=== PATIENT | male | born 1955 | race Caucasian/White ===

== ENCOUNTER 2016-12-19 19:06 | Emergency (ER) | payer OTHER ==
[~2016-12-19 19:06] MED LIST: ALDACTONE25 MG PO; CARVEDILOL25 MG PO; CARVEDILOL3.125 MG PO; COUMADIN1 MG PO; DIGITEK0.125 MG PO; DIGITEK0.25 MG PO; HYDROMORPHONE HC2 MG PO; LEVOFLOXACIN500 MG PO; METRONIDAZOLE500 MG PO; PLAVIX75 MG PO; WARFARIN SODIU2.5 MG PO; ZESTRIL2.5 MG PO
--- NOTE | 2016-12-19 21:17 | ED NURSING NOTES ---
Clinical Report - Nurses [facility] [address] [place] [address] 12/19/2016 19:05 Patient: WANG MONACO TRIAGE Triage time 19:10 Dec 19 2016. Acuity: LEVEL 3. Chief Complaint: (Critical Lab values.). Alert. GULSHAN COMA SCORE: Gulshan Coma Scale: 15- eyes open spontaneously (4); best verbal response- oriented x 4 (5); best motor response- obeys commands (6). --19:37 Bridger Moreno R.N. 19:30 12/19/16. BP: 101/76. HR: 64. RR: 18. O2 saturation: 91% on room air. Temp: 97.8 F. Pain level now: 0/10. --19:37 Bridger Moreno R.N. Weight: 63.9 kg stated. Height/Length: 72 inches Per Patient. BMI: 19.1. --19:16 Bridger Moreno R.N. Medications Digoxin Oral 0.125 mg, daily. Lisinopril Oral 5 mg, daily. Spironolactone Oral 25 mg, daily. Warfarin Sodium Oral 3 mg, daily. --19:19 Bridger Moreno R.N. Metoprolol Succinate ER Oral. --19:22 Bridger Moreno R.N. Aspirin Oral (Tablet Chewable 81 mg) 1 tablet, daily. --19:22 Bridger Moreno R.N. Atorvastatin Calcium Oral 10 mg, at bedtime. --19:22 Bridger Moreno R.N. Allergies No Known Drug Allergy. --19:19 Bridger Moreno R.N. History Arrived by private vehicle. Historian: patient. Accompanied by family. Primary physician (Mariusz). ( Critical Lab Values. Pt states that he had his blood drawn this morning and his PCP's office called and told him that he had some critical values.). This started today. Treatment HEALTH CARE SPECIALIST: None. PAST MEDICAL HX: Immunizations: status is unknown. SOCIAL HX: Heavy tobacco smoker- less than 1 pack per day. History of drug use: marijuana. No alcohol use. No infectious disease exposure. ABUSE ASSESSMENT: No report of abuse. FALL RISK ASSESSMENT: Fall risk assessment completed. No fall risk identified. NUTRITIONAL RISK ASSESSMENT: The nutritional risk assessment revealed no deficiencies. FUNCTIONAL ASSESSMENT: Functional assessment: no impairments noted. LEARNING NEEDS ASSESSMENT: The learning needs assessment revealed no barriers. SKIN INTEGRITY ASSESSMENT: Skin integrity risk assessment completed. No skin integrity risk identified. --19:37 Bridger Moreno R.N. PROBLEMS: COPD - Chronic Obstructive Pulmonary Disease. Myocardial Infarction. Hypertension. --19:27 Bridger Moreno R.N. Pericardial effusion. Diverticulitis. --19:33 Bridger Moreno R.N. ADDITIONAL SURGERIES: Angioplasty. Defibrillator . Pacemaker. --19:27 Bridger Moreno R.N. Interventions ID band on patient. To treatment room. --19:37 Bridger Moreno R.N. PHYSICAL ASSESSMENT Ambulatory to room. GENERAL / NEURO / PSYCH: Alert. Oriented X 4. HEENT: No facial asymmetry noted. Mucous membranes are pink. RESPIRATORY: Respirations not labored. GI / : Abdomen soft and nontender. SKIN: Skin intact. Skin is warm and dry. Normal skin turgor. --19:38 Bridger Moreno R.N. NURSING PROGRESS NOTES 19:15 12/19/2016 Site #1 started via IV in the left wrist with an 20g angiocath, with aseptic technique and good blood return; one attempt. Blood drawn: rainbow set. Labeled in the presence of the patient and sent to the lab. Saline lock flushed with 10 mL saline (start by LUCIO Javier). --19:30 Bridger Moreno R.N. EKG time: (1946). EKG was performed by a tech and shown to the ED physician. ( performed per MD SHARIF). --19:47 Miki Garcia ER Tech1 20:35 12/19/2016 Started bag #1 1000 mL IV Fluids IV NS (Saline); at 1000 mL/hr over 60 minute(s) via site #1. Allergies verified and confirmed 5 rights. IV patency established. IV site checked: no pain, redness, or swelling. IV flushed thoroughly pre- and post-medication administration. --20:43 Bridger Moreno R.N. 19:30 12/19/16. BP: 113/76. HR: 101 (irregularly-irregular). RR: 18. O2 saturation: 91%. Pain level now: 0/10. Additional comments: Paced. --20:49 Bridger Moreno R.N. 21:19 12/19/2016 IV Fluids IV NS Discontinued: bag #1 completed upon discharge. Total amount infused: 1000 mL. IV patency established. IV site checked: no pain, redness, or swelling. IV flushed thoroughly. --21:34 Morales Maloney R.N. DISPOSITION / DISCHARGE 21:21 12/19/2016 Site #1 removed upon discharge. Catheter intact. Bandaid applied. --21:31 Morales Maloney R.N. Departure time: 2129. Condition at departure: improved. ( Pt was given told to get a blood drawn for recheck of K, per MD. Pt was told to stop taking potassium and to talk to his PCP.). No learning barriers present. Discharge instructions provided and reviewed with the patient. Patient verbalized understanding. Written instructions provided in Samoan. The patient was discharged by the physician. He was discharged home and accompanied by family. He left the Emergency Department ambulatory and via private vehicle. Family member driving. --21:32 Morales Maloney R.N. 21:30 12/19/16. BP: 118/80. HR: 98. RR: 22. O2 saturation: 96%. Temp: 98.3 F. Pain level now 0/10. --21:32 Morales Maloney R.N. Locked/Released at 12/19/2016 21:34 by Morales Maloney R.N.
--- NOTE | 2016-12-19 21:17 | ED ORDER SUMMARY ---
..... Patient: WANG MONACO OrderSheet [facility] VisitID: [id number] [address] [place] [address] 61y, M Registration Date/Time: 12/19/2016 ORDER SHEET Weight: 63.9 kg (stated) Allergies: No Known Drug Allergy GENERAL ORDERS: CBC w Diff Urgent (19:46 12/19/2016 Carltno Hutson) (Ack 19:47 AMcQuoid ER Tech1) (20:41 Roselyn Mahan.NChristin) CMP Urgent (19:46 12/19/2016 Carlton Hutson) (Ack 19:47 AMcQuoid ER Tech1) (20:41 Roselyn Bhatia) EKG - ER Stat (19:48 12/19/2016 Carlton Hutson) (19:51 AMcQuoid ER Tech1) MEDICATION ORDERS: IV FLUIDS: IV Saline Lock (19:29 12/19/2016 Roselyn Bhatia verbal order read back to Carlton Hutson) (19:30 Roselyn Bhatia) IV NS : initial bolus none -, then 1000 mL/hr for X1 (NOW) (20:18 12/19/2016 Carlton Hutson) (20:43 Roselyn Bhatia) ORDER SHEET NOTES: [Electronically signed by Bridger Mayo Dr. (21:24 12/19/2016)] [Electronically signed by Morales Maloney R.N. (21:34 12/19/2016)] [Electronically locked/signed by Morales Maloney R.N. (21:34 12/19/2016)]
--- NOTE | 2016-12-19 21:17 | ED CLINICAL REPORT ---
Clinical Report - Physicians/Mid Levels [facility] [address] [place] [address] 12/19/2016 19:05 Patient: WANG MONACO Time Seen: 19:11; initial patient contact. Arrived- By private vehicle. Historian- patient. HISTORY OF PRESENT ILLNESS Chief Complaint: ABNORMAL POTASSIUM (5.9). This started just prior to arrival and is still present. At its maximum, severity described as mild. When seen in the E.D., severity described as mild. Modifying factors. Not worsened by anything. Not relieved by anything. No current or associated symptoms. Similar symptoms previously: None. Recent medical care: The patient was seen recently in the office. ( Potassium has been low, was started on 3 tabs, but pt has only been taking 2, labs today showed a K of 5.9 and Cr of 1.7(baseline)). REVIEW OF SYSTEMS No difficulty breathing, chest pain, nausea, vomiting or palpitations. All systems otherwise negative, except as recorded above. PAST HISTORY COPD - Chronic Obstructive Pulmonary Disease. Myocardial Infarction. Hypertension. Pericardial effusion. Diverticulitis. CKD SURGERIES: Angioplasty. Defibrillator . Pacemaker. SOCIAL HISTORY Current every day smoker. History of drug use: marijuana. No alcohol use. ADDITIONAL NOTES The nursing notes have been reviewed with agreement regarding the chief complaint, PMH and patient medications and allergies. PHYSICAL EXAM Vital Signs: 12/19/2016 19:30 BP: 101/76. HR: 64. RR: 18. O2 saturation: 91%. Temp: 97.8 F. Pain level now: 0/10. Have been reviewed. Blood pressure normal. Heart rate normal. Respiratory rate normal. Temperature normal. Oxygen saturation low. Appearance: Alert. No acute distress. Eyes: Eyes normal inspection. ENT: Pharynx normal. The mucous membranes are not dry. CVS: Normal heart rate and rhythm. Heart sounds normal. Respiratory: No respiratory distress. Breath sounds normal. Skin: Skin warm and dry. Normal skin color. Extremities: No lower extremity edema. Neuro: Oriented X 3. LABS, X-RAYS, AND EKG EKG: EKG time: (1946). No acute process. No acute ischemia. Normal EKG. Rate: 97. Ventricular paced rhythm. Normal QRS complex. Normal axis. Normal ST and T waves, QT and QTc. Prior EKG unavailable. The study has been interpreted contemporaneously by me. The study has been independently viewed by me. The EKG appears to be a good tracing. Interpretation time: 1946. Laboratory Tests: CBC w Diff: (YONY: 12/19/2016 19:15) ( MsgRcvd 12/19/2016 19:53) Final results Test Result Flag Units (Reference) WHITE BLOOD COUNT 11.1 K/uL (4.5-11.5) RED BLOOD COUNT 4.07 L M/uL (4.50-5.90) HEMOGLOBIN 11.4 L gm/dL (13.5-17.5) HEMATOCRIT 35.2 L % (41.0-53.0) MEAN CELL VOLUME 87 fL (80-100) MEAN CORPUSCULAR HGB 28 pg (26-34) MEAN CORPUSCULAR HGB CONC 32 g/dL (31-37) RED CELL DISTRIBUTION WIDTH 14.5 % (11.6-14.8) PLATELET COUNT 361 K/uL (150-400) NEUTROPHIL % 75.0 % (50-75) LYMPH % 17.4 L % (25-40) MONO % 6.1 % (3-14) EOSINOPHIL % 0.4 % (0-4) BASOPHIL % 1.1 % (0-2) . PROGRESS AND PROCEDURES Disposition: Discharged home in good and improved condition. Condition: good. CLINICAL IMPRESSION Hyperkalemia Mild chronic renal failure. INSTRUCTIONS Your Current Medications: CONTINUE TAKING THE FOLLOWING MEDICATIONS: Aspirin Oral : Tablet Chewable 81 mg, 1 tablet daily. Atorvastatin Calcium Oral : 10 mg at bedtime. Digoxin Oral : 0.125 mg daily. Lisinopril Oral : 5 mg daily. Metoprolol Succinate ER Oral. Spironolactone Oral : 25 mg daily. Warfarin Sodium Oral : 3 mg daily. Follow-up: Blood pressure screening was not performed during this visit because the patient has an active diagnosis of hypertension. (Electronically signed by Bridger Mayo Dr. 12/19/2016 21:24)
--- NOTE | 2016-12-19 21:17 | ED ORDER SUMMARY ---
..... Patient: WANG MONACO OrderSheet [facility] VisitID: [id number] [address] [place] [address] 61y, M Registration Date/Time: 12/19/2016 ORDER SHEET Weight: 63.9 kg (stated) Allergies: No Known Drug Allergy GENERAL ORDERS: CBC w Diff Urgent (19:46 12/19/2016 Carlton Hutson) (Ack 19:47 AMcQuoid ER Tech1) (20:41 Roselyn Mahan.NChristin) CMP Urgent (19:46 12/19/2016 Carlton Hutson) (Ack 19:47 AMcQuoid ER Tech1) (20:41 Roselyn Bhatia) EKG - ER Stat (19:48 12/19/2016 Carlton Hutson) (19:51 AMcQuoid ER Tech1) MEDICATION ORDERS: IV FLUIDS: IV Saline Lock (19:29 12/19/2016 Roselyn Bhatia verbal order read back to Carlton Hutson) (19:30 Roselyn Bhatia) IV NS : initial bolus none -, then 1000 mL/hr for X1 (NOW) (20:18 12/19/2016 Carlton Hutson) (20:43 Roselyn Bhatia) ORDER SHEET NOTES: [Electronically signed by Bridger Mayo Dr. (21:24 12/19/2016)] [Electronically signed by Morales Maloney R.N. (21:34 12/19/2016)] [Electronically locked/signed by Morales Maloney R.N. (21:34 12/19/2016)]
--- NOTE | 2016-12-19 21:34 | ED MED RECONCILIATION SUMMARY ---
Patient: WANG MONACO Medication Reconciliation Report [facility] VisitID: [id number] [address] [place] [address] 61y, M Registration Date/Time: 12/19/2016 Weight: 63.9 kg Height/Length: 72 in. BMI: 19.1 ALLERGIES: No Known Drug Allergy The patient's Home Medications are listed below: CONTINUE TAKING THE FOLLOWING MEDICATIONS: Aspirin Oral (81 mg) 1 tablet, daily Atorvastatin Calcium Oral 10 mg, at bedtime Digoxin Oral 0.125 mg, daily Lisinopril Oral 5 mg, daily Metoprolol Succinate ER Oral Spironolactone Oral 25 mg, daily Warfarin Sodium Oral 3 mg, daily The source(s) of the original Home Medication information: Not obtained. The following Medications were given to the patient in the Emergency Department: IV NS IV Fluids bolus 0, then 1000 mL/hr, administered: 12/19/2016 8:35:00 PM The following Medications were prescribed to the patient: None.
--- NOTE | 2016-12-19 21:34 | ED MED RECONCILIATION SUMMARY ---
Patient: WANG MONACO Medication Reconciliation Report [facility] VisitID: [id number] [address] [place] [address] 61y, M Registration Date/Time: 12/19/2016 Weight: 63.9 kg Height/Length: 72 in. BMI: 19.1 ALLERGIES: No Known Drug Allergy The patient's Home Medications are listed below: CONTINUE TAKING THE FOLLOWING MEDICATIONS: Aspirin Oral (81 mg) 1 tablet, daily Atorvastatin Calcium Oral 10 mg, at bedtime Digoxin Oral 0.125 mg, daily Lisinopril Oral 5 mg, daily Metoprolol Succinate ER Oral Spironolactone Oral 25 mg, daily Warfarin Sodium Oral 3 mg, daily The source(s) of the original Home Medication information: Not obtained. The following Medications were given to the patient in the Emergency Department: IV NS IV Fluids bolus 0, then 1000 mL/hr, administered: 12/19/2016 8:35:00 PM The following Medications were prescribed to the patient: None.
--- NOTE | 2016-12-19 21:34 | ED MAR SUMMARY ---
..... Medication Administration Record [facility] [address] [place] [address] Patient: WANG MONACO Visit ID: [id number] 61y, M Weight: 63.9 kg Height/Length: 72 in BMI: 19.1 ALLERGIES: No Known Drug Allergy Start 20:35 12/19/2016 Bridger Moreno RKarla, Stop 21:19 12/19/2016 Morales Maloney R.N. Medication Administered: IV NS (SALINE), Dose: IV Fluids over 60 minute(s), Rate: 1000 mL/hr, Dispensed: 1000 mL bag, Site: #1 left wrist. Medication Ordered: IV NS : initial bolus none -, then 1000 mL/hr for X1 (NOW).
--- NOTE | 2016-12-19 21:34 | ED DISCHARGE INSTRUCTIONS ---
Patient: WANG MONACO General Instructions [facility] VisitID: [id number] [address] [place] [address] 61y, M Registration Date/Time: 12/19/2016 Hyperkalemia Mild chronic renal failure. INSTRUCTIONS Your Current Medications: CONTINUE TAKING THE FOLLOWING MEDICATIONS: Aspirin Oral : Tablet Chewable 81 mg, 1 tablet daily. Atorvastatin Calcium Oral : 10 mg at bedtime. Digoxin Oral : 0.125 mg daily. Lisinopril Oral : 5 mg daily. Metoprolol Succinate ER Oral. Spironolactone Oral : 25 mg daily. Warfarin Sodium Oral : 3 mg daily. Follow-up: Blood pressure screening was not performed during this visit because the patient has an active diagnosis of hypertension. ADDITIONAL INFORMATION Hyperkalemia Hyperkalemia is a condition caused by too much potassium in the blood. Most often this occurs in persons taking potassium supplements, or those with severe kidney disease. Mild hyperkalemia usually causes no symptoms. It is only discovered with a blood test. As the potassium level rises, symptoms may include weakness, heart palpitations (rapid or irregular heartbeats), nausea, vomiting, or diarrhea. Home Care: Follow your doctors advice about any potassium supplements and diuretics (water pills) you may be taking. Additional prescription medicines may also be given to remove excess potassium. Follow Up with your doctor for a repeat blood test within the next7 days, unless told otherwise. Get Prompt Medical Attention if any of the following occur: Weakness, dizziness Irregular heartbeat, extra beats, very fast or very slow heart rate Fainting spell Nausea, vomiting, or diarrhea Chest, arm, shoulder, neck or upper back pain, or shortness of breath Reduced urination You have been given the following additional information: Hyperkalemia (Electronically signed by Bridger Mayo Dr. 12/19/2016 21:24)
--- NOTE | 2016-12-19 21:34 | ED DISCHARGE INSTRUCTIONS ---
Patient: WANG MONACO General Instructions [facility] VisitID: [id number] [address] [place] [address] 61y, M Registration Date/Time: 12/19/2016 Hyperkalemia Mild chronic renal failure. INSTRUCTIONS Your Current Medications: CONTINUE TAKING THE FOLLOWING MEDICATIONS: Aspirin Oral : Tablet Chewable 81 mg, 1 tablet daily. Atorvastatin Calcium Oral : 10 mg at bedtime. Digoxin Oral : 0.125 mg daily. Lisinopril Oral : 5 mg daily. Metoprolol Succinate ER Oral. Spironolactone Oral : 25 mg daily. Warfarin Sodium Oral : 3 mg daily. Follow-up: Blood pressure screening was not performed during this visit because the patient has an active diagnosis of hypertension. ADDITIONAL INFORMATION Hyperkalemia Hyperkalemia is a condition caused by too much potassium in the blood. Most often this occurs in persons taking potassium supplements, or those with severe kidney disease. Mild hyperkalemia usually causes no symptoms. It is only discovered with a blood test. As the potassium level rises, symptoms may include weakness, heart palpitations (rapid or irregular heartbeats), nausea, vomiting, or diarrhea. Home Care: Follow your doctors advice about any potassium supplements and diuretics (water pills) you may be taking. Additional prescription medicines may also be given to remove excess potassium. Follow Up with your doctor for a repeat blood test within the next7 days, unless told otherwise. Get Prompt Medical Attention if any of the following occur: Weakness, dizziness Irregular heartbeat, extra beats, very fast or very slow heart rate Fainting spell Nausea, vomiting, or diarrhea Chest, arm, shoulder, neck or upper back pain, or shortness of breath Reduced urination You have been given the following additional information: Hyperkalemia (Electronically signed by Bridger Mayo Dr. 12/19/2016 21:24)
--- NOTE | 2016-12-19 21:34 | ED MAR SUMMARY ---
..... Medication Administration Record [facility] [address] [place] [address] Patient: WANG MONACO Visit ID: [id number] 61y, M Weight: 63.9 kg Height/Length: 72 in BMI: 19.1 ALLERGIES: No Known Drug Allergy Start 20:35 12/19/2016 Bridger Moreno RKarla, Stop 21:19 12/19/2016 Morales Maloney R.N. Medication Administered: IV NS (SALINE), Dose: IV Fluids over 60 minute(s), Rate: 1000 mL/hr, Dispensed: 1000 mL bag, Site: #1 left wrist. Medication Ordered: IV NS : initial bolus none -, then 1000 mL/hr for X1 (NOW).
== END 2016-12-19 21:30 | disposition home or self-care (01) ==
LOC: ED SRH 19:06
DX: E87.5 Hyperkalemia (principal); I12.9 Hypertensive chronic kidney disease with stage 1 through stage 4 chronic kidney disease, or unspecified chronic kidney disease; N18.9 Chronic kidney disease, unspecified; I25.2 Old myocardial infarction; Z95.0 Presence of cardiac pacemaker; F17.200 Nicotine dependence, unspecified, uncomplicated; Z79.01 Long term (current) use of anticoagulants; Z79.82 Long term (current) use of aspirin; Z79.899 Other long term (current) drug therapy
CPT/HCPCS: 90074; 90100; 95059

== ENCOUNTER 2016-12-22 12:46 | Outpatient (CLI) | payer OTHER | END 2016-12-22 23:00 | LOC: LAB SRH 12:46 | DX: E87.5 Hyperkalemia (principal) | CPT/HCPCS: 90047; 90074 ==

== ENCOUNTER 2017-05-23 15:04 | Emergency (ER) | payer OTHER ==
--- NOTE | 2017-05-23 17:43 | ED ORDER SUMMARY ---
..... Patient: WANG MONACO OrderSheet [facility] VisitID: [id number] [place] [address] 62y, M Registration Date/Time: 05/23/2017 ORDER SHEET Weight: 65.7 kg (stated) Allergies: No Known Drug Allergy GENERAL ORDERS: CBC w Diff Urgent (16:02 05/23/2017 Jose Eduardo DOLL) (Ack 16:03 Fatou) (16:05 KWilliams R.N.) (16:08 KPage-Kuchan R.N.) CMP Urgent (16:05/23/2017 Jose Eduardo DOLL) (Ack 16:03 Fatou) (16:05 KWilliams R.N.) (16:08 KPage-Kuchan R.N.) Amylase Urgent (16:02 05/23/2017 Jose Eduardo DOLL) (Ack 16:03 Fatou) (16:05 KWilliams R.N.) (16:08 KPage-Kuchan R.N.) Lipase Urgent (16:02 05/23/2017 Jose Eduardo DOLL) (Ack 16:03 Fatou) (16:05 KWilliams R.N.) (16:08 KPage-Kuchan R.N.) Magnesium Urgent (16:02 05/23/2017 Jose Eduardo DOLL) (Ack 16:03 Fatou) (16:05 KWilliams R.N.) (16:08 KPage-Kuchan R.N.) PT with INR Urgent (16:02 05/23/2017 Jose Eduardo DOLL) (Ack 16:03 Fatou) (16:05 KWilliams R.N.) (16:08 KPage-Kuchan R.N.) PTT Urgent (16:02 05/23/2017 Jose Eduardo DOLL) (Ack 16:03 Fatou) (16:05 KWilliams R.N.) (16:08 KPage-Kuchan R.N.) Digoxin Level Urgent (16:05/23/2017 Jose Eduardo DOLL) (Ack 16:03 Fatou) (16:05 KWilliams R.N.) (16:08 KPage-Kuchan R.N.) TSH Urgent (16:04 05/23/2017 Jose Eduardo DOLL) (Ack 16:05 OHernandez) (16:08 Chase Bhatia) MEDICATION ORDERS: IV FLUIDS: IV Saline Lock (16:02 05/23/2017 Jose Eduardo DOLL) (16:05 Percy Bhatia) ORDER SHEET NOTES: [Electronically signed by Vladimir Reynaga MD (19:16 05/23/2017)] [Electronically signed by Armando Elias R.N. (23:39 05/23/2017)] [Electronically locked/signed by Armando Elias R.N. (23:39 05/23/2017)]
--- NOTE | 2017-05-23 17:43 | ED NURSING NOTES ---
Clinical Report - Nurses [facility] [address] [place] [address] 05/23/2017 15:04 Patient: WANG MONACO TRIAGE Triage time 15:28 May 23 2017. Chief Complaint: (pt rec call from lab that he has "low sodium" no numbers provided, hx of same, no c/o). Alert. No acute distress. SEPSIS SCREEN: Sepsis Screen. Negative (no infection suspected/documented). --15:39 Armando Elias R.N. 15:28 05/23/17. BP: 103/72. HR: 87. RR: 17. O2 saturation: 100%. Temp: 98.6 F. Pain level now: 0/10. --15:39 Armando Elias R.N. Weight: 65.7 kg stated. Height/Length: 72 inches Per Patient. BMI: 19.7. --15:29 Armando Elias R.N. Medications Aspirin Oral (Tablet Chewable 81 mg) 1 tablet, daily. Atorvastatin Calcium Oral 10 mg, at bedtime. Digoxin Oral 0.125 mg, daily. Lisinopril Oral 5 mg, daily. Metoprolol Succinate ER Oral. Spironolactone Oral 25 mg, daily. Warfarin Sodium Oral 3 mg, daily. --15:30 Armando Elias R.N. Allergies No Known Drug Allergy. --15:30 Armando Elias R.N. Medication/allergy information source: the patient. --15:39 Armando Elias R.N. History Arrived by private vehicle. Historian: patient. No fever or weakness. Denies muscle aches. 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 SOCIAL HX: Smoker- current status unknown (cigarette). No alcohol use or drug use. ABUSE ASSESSMENT: No report of abuse. SELF HARM ASSESSMENT: A self harm assessment was performed. The patient answered "no" to the question "Do you have thoughts of harming or killing yourself?". FALL RISK ASSESSMENT: Fall risk assessment completed. No fall risk identified. NUTRITIONAL RISK ASSESSMENT: The nutritional risk assessment revealed no deficiencies. FUNCTIONAL ASSESSMENT: Functional assessment: no impairments noted. LEARNING NEEDS ASSESSMENT: The learning needs assessment revealed no barriers. SKIN INTEGRITY ASSESSMENT: Skin integrity risk assessment completed. No skin integrity risk identified. --15:39 Armando Elias R.N. PROBLEMS: Hyponatremia. Renal Failure. Hyperkalemia. Pericardial effusion. Diverticulitis. COPD - Chronic Obstructive Pulmonary Disease. Myocardial Infarction. Hypertension. --15:30 Armando Elias R.N. ADDITIONAL SURGERIES: Angioplasty. Defibrillator . Pacemaker. --15:30 Armando Elias R.N. Interventions ID band on patient. To treatment room. --15:39 Armando Elias R.N. PHYSICAL ASSESSMENT Ambulatory to room. Patient gowned. GENERAL / NEURO / PSYCH: Alert. Oriented X 4. Appears in no acute distress. HEENT: Pupils equal, round and reactive to light. No facial asymmetry noted. Mucous membranes are pink. RESPIRATORY: Respirations not labored. Breath sounds within normal limits. CVS: Capillary refill less than 2 seconds. Pulses within normal limits. GI / : Abdomen soft and nontender. SKIN: Skin intact. Skin is warm and dry. Normal skin turgor. --15:39 Armando Elias R.N. NURSING PROGRESS NOTES barrel washer, pulse oximeter and NIBP monitor placed on patient; cath lab radiology technician- Lead II and V5; monitor alarms on. Reassurance given. Call light placed in reach. Side rails up. Bed placed in lowest position. Brakes of bed on. --15:39 Armando Elias R.N. 15:35 05/23/2017 Site #1 started via IV in the right forearm with an 20g angiocath; one attempt. Blood drawn: rainbow set. Labeled in the presence of the patient and sent to the lab. Saline lock flushed with 10 mL saline. --15:40 Armando Elias R.N. Critical value relayed to ED by Girish. Critical value received by Armando. Mag 1.0. Critical value read back. Verified lab result. ED physician notifed of critical value (Dr lofton). ED physician notified. --17:09 Armando Elias R.N. DISPOSITION / DISCHARGE 18:07 05/23/2017 Site #1 removed upon discharge. Bandaid applied. --18:17 Armando Elias R.N. No learning barriers present. Discharge instructions provided and reviewed with the patient. Reviewed medication(s) side effects, precautions, dosing and course information. Patient verbalized understanding. Written instructions provided in [place]. The patient was discharged by the physician. He was discharged home. He left the Emergency Department ambulatory and via private vehicle. Patient driving. --18:17 Armando Elias R.N. 18:16 05/23/17. BP: 104/73. HR: 76. RR: 17. O2 saturation: 98%. Temp: deferred. Pain level now: 0/10. --18:17 Armando Elias R.N. Departure time: 1811. --18:17 Armando Elias R.N. Locked/Released at 05/23/2017 23:39 by Armando Elias R.N.
--- NOTE | 2017-05-23 17:43 | ED NURSING NOTES ---
Clinical Report - Nurses [facility]ly [facility] [address] [place] [address] 05/23/2017 15:04 Patient: WANG MONACO TRIAGE Triage time 15:28 May 23 2017. Chief Complaint: (pt rec call from lab that he has "low sodium" no numbers provided, hx of same, no c/o). Alert. No acute distress. SEPSIS SCREEN: Sepsis Screen. Negative (no infection suspected/documented). --15:39 Armando Elias R.N. 15:28 05/23/17. BP: 103/72. HR: 87. RR: 17. O2 saturation: 100%. Temp: 98.6 F. Pain level now: 0/10. --15:39 Armando Elias R.N. Weight: 65.7 kg stated. Height/Length: 72 inches Per Patient. BMI: 19.7. --15:29 Armando Elias R.N. Medications Aspirin Oral (Tablet Chewable 81 mg) 1 tablet, daily. Atorvastatin Calcium Oral 10 mg, at bedtime. Digoxin Oral 0.125 mg, daily. Lisinopril Oral 5 mg, daily. Metoprolol Succinate ER Oral. Spironolactone Oral 25 mg, daily. Warfarin Sodium Oral 3 mg, daily. --15:30 Armando Elias R.N. Allergies No Known Drug Allergy. --15:30 Armando Elias R.N. Medication/allergy information source: the patient. --15:39 Armando Elias R.N. History Arrived by private vehicle. Historian: patient. No fever or weakness. Denies muscle aches. 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 SOCIAL HX: Smoker- current status unknown (cigarette). No alcohol use or drug use. ABUSE ASSESSMENT: No report of abuse. SELF HARM ASSESSMENT: A self harm assessment was performed. The patient answered "no" to the question "Do you have thoughts of harming or killing yourself?". FALL RISK ASSESSMENT: Fall risk assessment completed. No fall risk identified. NUTRITIONAL RISK ASSESSMENT: The nutritional risk assessment revealed no deficiencies. FUNCTIONAL ASSESSMENT: Functional assessment: no impairments noted. LEARNING NEEDS ASSESSMENT: The learning needs assessment revealed no barriers. SKIN INTEGRITY ASSESSMENT: Skin integrity risk assessment completed. No skin integrity risk identified. --15:39 Armando Elias R.N. PROBLEMS: Hyponatremia. Renal Failure. Hyperkalemia. Pericardial effusion. Diverticulitis. COPD - Chronic Obstructive Pulmonary Disease. Myocardial Infarction. Hypertension. --15:30 Armando Elias R.N. ADDITIONAL SURGERIES: Angioplasty. Defibrillator . Pacemaker. --15:30 Armando Elisa R.N. Interventions ID band on patient. To treatment room. --15:39 Armando Elias R.N. PHYSICAL ASSESSMENT Ambulatory to room. Patient gowned. GENERAL / NEURO / PSYCH: Alert. Oriented X 4. Appears in no acute distress. HEENT: Pupils equal, round and reactive to light. No facial asymmetry noted. Mucous membranes are pink. RESPIRATORY: Respirations not labored. Breath sounds within normal limits. CVS: Capillary refill less than 2 seconds. Pulses within normal limits. GI / : Abdomen soft and nontender. SKIN: Skin intact. Skin is warm and dry. Normal skin turgor. --15:39 Armando Elias R.N. NURSING PROGRESS NOTES polysomnographic technician, pulse oximeter and NIBP monitor placed on patient; speech language specialist- Lead II and V5; monitor alarms on. Reassurance given. Call light placed in reach. Side rails up. Bed placed in lowest position. Brakes of bed on. --15:39 Armando Elias R.N. 15:35 05/23/2017 Site #1 started via IV in the right forearm with an 20g angiocath; one attempt. Blood drawn: rainbow set. Labeled in the presence of the patient and sent to the lab. Saline lock flushed with 10 mL saline. --15:40 Armando Elias R.N. Critical value relayed to ED by Girish. Critical value received by Armando. Mag 1.0. Critical value read back. Verified lab result. ED physician notifed of critical value (Dr lofton). ED physician notified. --17:09 Armando Elias R.N. DISPOSITION / DISCHARGE 18:07 05/23/2017 Site #1 removed upon discharge. Bandaid applied. --18:17 Armando Elias R.N. No learning barriers present. Discharge instructions provided and reviewed with the patient. Reviewed medication(s) side effects, precautions, dosing and course information. Patient verbalized understanding. Written instructions provided in Guinean. The patient was discharged by the physician. He was discharged home. He left the Emergency Department ambulatory and via private vehicle. Patient driving. --18:17 Armando Elias R.N. 18:16 05/23/17. BP: 104/73. HR: 76. RR: 17. O2 saturation: 98%. Temp: deferred. Pain level now: 0/10. --18:17 Armando Elias R.N. Departure time: 1811. --18:17 Armando Elias R.N. Locked/Released at 05/23/2017 23:39 by Armando Elias R.N.
--- NOTE | 2017-05-23 17:43 | ED ORDER SUMMARY ---
..... Patient: WANG MONACO OrderSheet [facility] VisitID: [id number] [place] [address] 62y, M Registration Date/Time: 05/23/2017 ORDER SHEET Weight: 65.7 kg (stated) Allergies: No Known Drug Allergy GENERAL ORDERS: CBC w Diff Urgent (16:02 05/23/2017 Jose Eduardo DOLL) (Ack 16:03 Fatou) (16:05 KWilliams R.N.) (16:08 KPage-Kuchan R.N.) CMP Urgent (16:05/23/2017 Jose Eduardo DOLL) (Ack 16:03 Fatou) (16:05 KWilliams R.N.) (16:08 KPage-Kuchan R.N.) Amylase Urgent (16:02 05/23/2017 Jose Eduardo DOLL) (Ack 16:03 Fatou) (16:05 KWilliams R.N.) (16:08 KPage-Kuchan R.N.) Lipase Urgent (16:02 05/23/2017 Jose Eduardo DOLL) (Ack 16:03 Fatou) (16:05 KWilliams R.N.) (16:08 KPage-Kuchan R.N.) Magnesium Urgent (16:02 05/23/2017 Jose Eduardo DOLL) (Ack 16:03 Fatou) (16:05 KWilliams R.N.) (16:08 KPage-Kuchan R.N.) PT with INR Urgent (16:02 05/23/2017 Jose Eduardo DOLL) (Ack 16:03 Fatou) (16:05 KWilliams R.N.) (16:08 KPage-Kuchan R.N.) PTT Urgent (16:02 05/23/2017 Jose Eduardo DOLL) (Ack 16:03 Fatou) (16:05 KWilliams R.N.) (16:08 KPage-Kuchan R.N.) Digoxin Level Urgent (16:05/23/2017 Jose Eduardo DOLL) (Ack 16:03 Fatou) (16:05 KWilliams R.N.) (16:08 KPage-Kuchan R.N.) TSH Urgent (16:04 05/23/2017 Jose Eduardo DOLL) (Ack 16:05 OHernandez) (16:08 Chase Bhatia) MEDICATION ORDERS: IV FLUIDS: IV Saline Lock (16:02 05/23/2017 Jose Eduardo DOLL) (16:05 Percy Bhatia) ORDER SHEET NOTES: [Electronically signed by Vladimir Reynaga MD (19:16 05/23/2017)] [Electronically signed by Armando Elias R.N. (23:39 05/23/2017)] [Electronically locked/signed by Armando Elias R.N. (23:39 05/23/2017)]
--- NOTE | 2017-05-23 17:43 | ED CLINICAL REPORT ---
Clinical Report - Physicians/Mid Levels [facility] [address] [place] [address] 05/23/2017 15:04 Patient: WANG MONACO Time Seen: 15:32. Arrived- By private vehicle. Historian- patient. HISTORY OF PRESENT ILLNESS Chief Complaint: ABNORMAL SODIUM. He was instructed to come to the ED for evaluation. (Patient reports history of chronic diffuse joint pains. He is followed by an orthopedist Dr. Yang. 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 He saw Dr. Guzman this past week and some lab work was ordered. Dr. Guzman called him today and instructed him to come in because he had a low sodium level. The patient does not know what the value was today but he says that his sodium is generally low. He denies any new symptoms. No muscle aches no chest pain no shortness of breath no lightheadedness or dizziness.). REVIEW OF SYSTEMS No chills, fever, sweats, calf pain or chest pain. No cough, difficulty breathing, pedal edema, abdominal pain or black stools. No bloody stools, constipation, diarrhea, nausea or vomiting. No urinary problems. The patient has had palpitations (chronically). It has been similar to previous symptoms. He has had joint pain (chronically), involving the left shoulder and left hip. Has had similar previous symptoms of joint pain. He reports that his INR was elevated at his last measurement. He was instructed to start taking 1 tablet every other night of his Coumadin. He is supposed to have value rechecked Thursday, 2 days. All systems otherwise negative, except as recorded above. PAST HISTORY PCP - [place]. Problems: Hyponatremia. Renal Failure. Hyperkalemia. Pericardial effusion. Diverticulitis. COPD - Chronic Obstructive Pulmonary Disease. Myocardial Infarction. Hypertension. Additional Surgeries: Angioplasty. Defibrillator . Medications: Aspirin Oral (Tablet Chewable 81 mg) 1 tablet, daily. Atorvastatin Calcium Oral 10 mg, at bedtime. Digoxin Oral 0.125 mg, daily. Lisinopril Oral 5 mg, daily. Metoprolol Succinate ER Oral. Spironolactone Oral 25 mg, daily. Warfarin Sodium Oral 3 mg, daily. Allergies: No Known Drug Allergy. SOCIAL HISTORY Current every day light tobacco smoker (cigarette)- less than 1/2 a pack per day. No alcohol use or drug use. FAMILY HISTORY Denies family medical history. ADDITIONAL NOTES The nursing notes have been reviewed. PHYSICAL EXAM Vital Signs: 05/23/2017 15:28 BP: 103/72. HR: 87. RR: 17. O2 saturation: 100%. Temp: 98.6 F. Pain level now: 0/10. Have been reviewed. Appearance: Alert. No acute distress. Eyes: Pupils equal, round and reactive to light. ENT: Pharynx normal. Neck: Normal inspection. Neck supple. No JVD. CVS: Normal heart rate and rhythm. Heart sounds normal. Respiratory: No respiratory distress. Breath sounds normal. Chest nontender. Abdomen: No visible injury. Soft and nontender. Bowel sounds normal. No organomegaly. No mass. Back: Normal inspection. Skin: Skin warm and dry. Normal skin color. No rash. Normal skin turgor. (Pacemaker defibrillator is noted under the skin of the left anterior chest wall). Extremities: Extremities exhibit normal ROM. No calf tenderness. No lower extremity edema. Neuro: No motor deficit. No sensory deficit. LABS, X-RAYS, AND EKG Laboratory Tests: CBC w Diff: (YONY: 05/23/2017 15:39) ( MsgRcvd 05/23/2017 16:26) Final results Test Result Flag Units (Reference) WHITE BLOOD COUNT 11.0 K/uL (4.5-11.5) RED BLOOD COUNT 3.65 L M/uL (4.50-5.90) HEMOGLOBIN 9.6 L gm/dL (13.5-17.5) HEMATOCRIT 29.3 L % (41.0-53.0) MEAN CELL VOLUME 80 fL (80-100) MEAN CORPUSCULAR HGB 27 pg (26-34) MEAN CORPUSCULAR HGB CONC 33 g/dL (31-37) RED CELL DISTRIBUTION WIDTH 17.6 H % (11.6-14.8) PLATELET COUNT 286 K/uL (150-400) NEUTROPHIL % 72.4 % (50-75) LYMPH % 20.8 L % (25-40) MONO % 5.6 % (3-14) EOSINOPHIL % 0.9 % (0-4) BASOPHIL % 0.3 % (0-2) PT with INR: (YONY: 05/23/2017 15:39) ( [facility] 05/23/2017 16:42) Final results Test Result Flag Units (Reference) INR 3.0 H (0.8-1.2) Low Intensity Therapy: INR 1.5-2.0 PT range 18.5-23.1Mod.Intensity Therapy: INR 2.0-3.0 PT range 23.1-31.5High Intensity Therapy: INR 2.5-3.5 PT range 27.4-35.5High Intensity Therapy 2: INR 3.0-4.0 PT range 31.5-39.3 APTT 64 H SECONDS (24-34) TSH: (YONY: 05/23/2017 15:39) ( [facility] 05/23/2017 16:47) Final results Test Result Flag Units (Reference) THYROID STIMULATING HORMONE 0.119 L uIU/mL (0.30-3.74) CMP: (YONY: 05/23/2017 15:39) ( [facility] 05/23/2017 17:08) Final results Test Result Flag Units (Reference) GLUCOSE 124 H mg/dL (70-110) BUN 33 H mg/dL (7-18) CREATININE 2.0 H mg/dL (0.6-1.3) Estimated GFR 36.16 mL/min Estimated GFR- 43.83 mL/min Note: Persistent reduction over 3 months in eGFR<60 mL/min/1.73 m2 defines CKD. Patients with eGFR values>=60 mL/min/1.73 m2 may also have CKD if evidence ofpersistent proteinuria. Additional information may be foundat www.kidney.org. SODIUM 126 L mmol/L (136-145) POTASSIUM 4.7 mmol/L (3.5-5.1) CHLORIDE 94 L mmol/L (98-107) CARBON DIOXIDE 21 mmol/L (21-32) CALCIUM 9.0 mg/dL (8.5-10.1) TOTAL PROTEIN 7.3 g/dL (6.4-8.2) ALBUMIN 3.5 g/dL (3.3-5.0) BILIRUBIN, TOTAL 0.5 mg/dL (0.0-1.0) ALKALINE PHOSPHATASE 115 U/L (46-116) AST (SGOT) 14 L U/L (15-37) ALT (SGPT) 12 U/L (12-78) LIPASE 393 U/L (73-393) AMYLASE 111 U/L (25-115) DIGOXIN 0.8 L ng/mL (0.9-2.0) MAGNESIUM 1.0 *L mg/dL (1.8-2.4) CRITICAL RESULTS CALLEDCalled to [facility] 05/23/17 [id number] 2 patient identifiers used? YWas the result read back? Y . PROGRESS AND PROCEDURES Course of Care: Patient is stable. Discussed case with on-call health care provider, (Bunny Spencer - she reviewed the results of multiple prior metabolic panels dating back as far as 2013. These all showed that he has had sodium levels between 125 and 128 chronically. there were no records of a magnesium level.). Reviewed test results and need for additional work-up. Agreed upon treatment plan and need for patient follow-up. Health care provider will see patient in ED. Refers case to other health care provider. Patient/family counseled. Old medical records reviewed. Disposition: Discharged. Condition: stable. CLINICAL IMPRESSION Chronic renal insufficiency. Moderate hypomagnesemia. Hyponatremia (chronic). INSTRUCTIONS Warnings: Further evaluation is necessary. GENERAL WARNINGS: Return or contact your physician immediately if your condition worsens or changes unexpectedly, if not improving as expected, or if other problems arise. Your Current Medications: CHANGE THE FOLLOWING MEDICATIONS TO: Warfarin Sodium Oral : 3 mg every other day. CONTINUE TAKING THE FOLLOWING MEDICATIONS: Aspirin Oral : Tablet Chewable 81 mg, 1 tablet daily. Atorvastatin Calcium Oral : 10 mg at bedtime. Digoxin Oral : 0.125 mg daily. Lisinopril Oral : 5 mg daily. Metoprolol Succinate ER Oral. Spironolactone Oral : 25 mg daily. OTC Medications: Slow Mag (available over the counter): take 1 orally every 12 hours for 5 days. Dispense ten (10). No refills. Follow-up: Follow up with your doctor in five days as scheduled. Understanding of the discharge instructions verbalized by patient. (Electronically signed by Vladimir Reynaga MD 05/23/2017 19:16)
--- NOTE | 2017-05-23 23:40 | ED MED RECONCILIATION SUMMARY ---
Patient: WANG MONACO Medication Reconciliation Report [facility] VisitID: [id number] [address] [place] [address] 62y, M Registration Date/Time: 05/23/2017 Weight: 65.7 kg Height/Length: 72 in. BMI: 19.7 ALLERGIES: No Known Drug Allergy The patient's Home Medications are listed below: CHANGE THE FOLLOWING MEDICATIONS TO: Warfarin Sodium Oral : 3 mg every other day CONTINUE TAKING THE FOLLOWING MEDICATIONS: Aspirin Oral (81 mg) 1 tablet, daily Atorvastatin Calcium Oral 10 mg, at bedtime Digoxin Oral 0.125 mg, daily Lisinopril Oral 5 mg, daily Metoprolol Succinate ER Oral Spironolactone Oral 25 mg, daily The source(s) of the original Home Medication information: patient The following Medications were given to the patient in the Emergency Department: None. The following Medications were prescribed to the patient: Slow Mag (available over the counter): take 1 orally every 12 hours for 5 days. Dispense ten (10). No refills. -- Vladimir Reynaga MD
--- NOTE | 2017-05-23 23:40 | ED MAR SUMMARY ---
..... Medication Administration Record [facility] [address] [place], [place] [id number] Patient: WANG MONACO Visit ID: [id number] 62y, M Weight: 65.7 kg Height/Length: 72 in BMI: 19.7 ALLERGIES: No Known Drug Allergy
--- NOTE | 2017-05-23 23:40 | ED DISCHARGE INSTRUCTIONS ---
Patient: WANG MONACO General Instructions [facility] VisitID: [id number] [place] [address] 62y, M Registration Date/Time: 05/23/2017 Chronic renal insufficiency. Moderate hypomagnesemia. Hyponatremia (chronic). INSTRUCTIONS Warnings: Further evaluation is necessary. GENERAL WARNINGS: Return or contact your physician immediately if your condition worsens or changes unexpectedly, if not improving as expected, or if other problems arise. Your Current Medications: CHANGE THE FOLLOWING MEDICATIONS TO: Warfarin Sodium Oral : 3 mg every other day. CONTINUE TAKING THE FOLLOWING MEDICATIONS: Aspirin Oral : Tablet Chewable 81 mg, 1 tablet daily. Atorvastatin Calcium Oral : 10 mg at bedtime. Digoxin Oral : 0.125 mg daily. Lisinopril Oral : 5 mg daily. Metoprolol Succinate ER Oral. Spironolactone Oral : 25 mg daily. OTC Medications: Slow Mag (available over the counter): take 1 orally every 12 hours for 5 days. Dispense ten (10). No refills. Follow-up: Follow up with your doctor in five days as scheduled. Understanding of the discharge instructions verbalized by patient. ADDITIONAL INFORMATION Renal Insufficiency The role of the kidneys is to remove waste products and excess water from the body. When the kidneys do not function normally, waste products build up in the blood.The early stage of this process is called renal insufficiency . If renal insufficiency worsens it can lead to chronic renal failure. This allows excess water, waste and toxic substances to build up in the body. This can become a threat to life, requiring dialysis or a kidney transplant to stay alive. Diabetes is the leading causes of renal insufficiency. Other causes include high blood pressure, hardening of the arteries, lupus, inflammation of the blood vessels (vasculitis), prior viral and bacterial infections, and others. Certain [id number] pain medicines can cause renal failure when taken often over a long period of time. These include aspirin, ibuprofen (Advil, Motrin) and related anti-inflammatory medicines. Home Care: If you have diabetes, talk to your doctor about the quality of your blood sugar control.Ask about any changes needed to your diet or medicines. If you have high blood pressure: Take your blood pressure medicine. Take up a regular exercise program that you enjoy.Check with your doctor to be sure your planned exercise program is right for you. Reduce your salt (sodium) intake.Your doctor can tell you how much salt per day is safe for you. If you are overweight, talk to your doctor about a weight loss plan. If you smoke, you must quit.Smoking worsens kidney disease.Talk to your doctor about ways to help you quit.For more information, visit the following links: www.smokefree.gov/pubs/clearing_the_air.pdf www.smokefree.gov www.[employer].com Talk to your doctor about any dietary restrictions advised. In general, it is advisable to limit protein, salt, potassium and phosphorus.Avoid excess fluids. Do not add salt at the table and avoid salty foods.A calcium supplement may be prescribed to protect your bones from osteoporosis. Avoid the following over the counter medicines, or consult your doctor before using: Aspirin and anti-inflammatory drugs such as ibuprofen (Advil, Motrin), naprosyn (Aleve); [Short term use of acetaminophen (Tylenol) for fever or pain is okay.] Laxatives and antacids containing magnesium or aluminum (Mylanta, Maalox) Avoid Fleet or phosphosoda enemas which contain phosphorus Certain stomach acid-blocking medicine such as cimetidine (Tagamet), ranitidine (Zantac) Decongestants containing pseudoephedrine (such as some forms of Sudafed or Actifed) Herbal supplements Follow Up with your doctor or as advised by our staff. Contact one of the following for more information. [place] [phone] www.aakp.org National Kidney Foundation www.kidney.org Return Promptly or contact your doctor if any of the following occurs: Nausea or vomiting Severe weakness, dizziness, fainting, drowsiness or confusion Chest pain or shortness of breath Unexpected weight gain or swelling in the legs, ankles or around the eyes Heart beating fast, slow or irregularly Decrease or loss in urine output Hyponatremia Hyponatremia means low sodium levels in the blood. This condition most often occurs after prolonged vomiting or diarrhea. It can also result from the use of diuretics (water pills) or drinking excess amounts of water. Mild hyponatremia causes no symptoms. It is only discovered with a blood test. As sodium levels in the blood decreases, symptoms begin to appear. This includes weakness, confusion, muscle cramping and seizures. Home Care: 1) Reduce your daily water intake until the problem is corrected. 2) If you have been taking diuretics, you may be asked to stop taking them for a short time. 3) If you are having symptoms of weakness or confusion, do not drive or operate dangerous machinery until symptoms resolve. Follow Up with your doctor for a repeat blood test within the next week unless told otherwise. Get Prompt Medical Attention if any of the following occur: -- Increasing weakness -- Dizziness -- Irregular heartbeat, extra beats or very fast heart rate -- Fainting spell You have been given the following additional information: Renal Insufficiency Hyponatremia (Electronically signed by Vladimir Reynaga MD 05/23/2017 19:16)
--- NOTE | 2017-05-23 23:40 | ED DISCHARGE INSTRUCTIONS ---
Patient: WANG MONACO General Instructions [facility] VisitID: [id number] [place] [address] 62y, M Registration Date/Time: 05/23/2017 Chronic renal insufficiency. Moderate hypomagnesemia. Hyponatremia (chronic). INSTRUCTIONS Warnings: Further evaluation is necessary. GENERAL WARNINGS: Return or contact your physician immediately if your condition worsens or changes unexpectedly, if not improving as expected, or if other problems arise. Your Current Medications: CHANGE THE FOLLOWING MEDICATIONS TO: Warfarin Sodium Oral : 3 mg every other day. CONTINUE TAKING THE FOLLOWING MEDICATIONS: Aspirin Oral : Tablet Chewable 81 mg, 1 tablet daily. Atorvastatin Calcium Oral : 10 mg at bedtime. Digoxin Oral : 0.125 mg daily. Lisinopril Oral : 5 mg daily. Metoprolol Succinate ER Oral. Spironolactone Oral : 25 mg daily. OTC Medications: Slow Mag (available over the counter): take 1 orally every 12 hours for 5 days. Dispense ten (10). No refills. Follow-up: Follow up with your doctor in five days as scheduled. Understanding of the discharge instructions verbalized by patient. ADDITIONAL INFORMATION Renal Insufficiency The role of the kidneys is to remove waste products and excess water from the body. When the kidneys do not function normally, waste products build up in the blood.The early stage of this process is called renal insufficiency . If renal insufficiency worsens it can lead to chronic renal failure. This allows excess water, waste and toxic substances to build up in the body. This can become a threat to life, requiring dialysis or a kidney transplant to stay alive. Diabetes is the leading causes of renal insufficiency. Other causes include high blood pressure, hardening of the arteries, lupus, inflammation of the blood vessels (vasculitis), prior viral and bacterial infections, and others. Certain [id number] pain medicines can cause renal failure when taken often over a long period of time. These include aspirin, ibuprofen (Advil, Motrin) and related anti-inflammatory medicines. Home Care: If you have diabetes, talk to your doctor about the quality of your blood sugar control.Ask about any changes needed to your diet or medicines. If you have high blood pressure: Take your blood pressure medicine. Take up a regular exercise program that you enjoy.Check with your doctor to be sure your planned exercise program is right for you. Reduce your salt (sodium) intake.Your doctor can tell you how much salt per day is safe for you. If you are overweight, talk to your doctor about a weight loss plan. If you smoke, you must quit.Smoking worsens kidney disease.Talk to your doctor about ways to help you quit.For more information, visit the following links: www.smokefree.gov/pubs/clearing_the_air.pdf www.smokefree.gov www.[employer].com Talk to your doctor about any dietary restrictions advised. In general, it is advisable to limit protein, salt, potassium and phosphorus.Avoid excess fluids. Do not add salt at the table and avoid salty foods.A calcium supplement may be prescribed to protect your bones from osteoporosis. Avoid the following over the counter medicines, or consult your doctor before using: Aspirin and anti-inflammatory drugs such as ibuprofen (Advil, Motrin), naprosyn (Aleve); [Short term use of acetaminophen (Tylenol) for fever or pain is okay.] Laxatives and antacids containing magnesium or aluminum (Mylanta, Maalox) Avoid Fleet or phosphosoda enemas which contain phosphorus Certain stomach acid-blocking medicine such as cimetidine (Tagamet), ranitidine (Zantac) Decongestants containing pseudoephedrine (such as some forms of Sudafed or Actifed) Herbal supplements Follow Up with your doctor or as advised by our staff. Contact one of the following for more information. [phone] [phone] www.aakp.org National [employer] www.kidney.org Return Promptly or contact your doctor if any of the following occurs: Nausea or vomiting Severe weakness, dizziness, fainting, drowsiness or confusion Chest pain or shortness of breath Unexpected weight gain or swelling in the legs, ankles or around the eyes Heart beating fast, slow or irregularly Decrease or loss in urine output Hyponatremia Hyponatremia means low sodium levels in the blood. This condition most often occurs after prolonged vomiting or diarrhea. It can also result from the use of diuretics (water pills) or drinking excess amounts of water. Mild hyponatremia causes no symptoms. It is only discovered with a blood test. As sodium levels in the blood decreases, symptoms begin to appear. This includes weakness, confusion, muscle cramping and seizures. Home Care: 1) Reduce your daily water intake until the problem is corrected. 2) If you have been taking diuretics, you may be asked to stop taking them for a short time. 3) If you are having symptoms of weakness or confusion, do not drive or operate dangerous machinery until symptoms resolve. Follow Up with your doctor for a repeat blood test within the next week unless told otherwise. Get Prompt Medical Attention if any of the following occur: -- Increasing weakness -- Dizziness -- Irregular heartbeat, extra beats or very fast heart rate -- Fainting spell You have been given the following additional information: Renal Insufficiency Hyponatremia (Electronically signed by Vladimir Reynaga MD 05/23/2017 19:16)
--- NOTE | 2017-05-23 23:40 | ED MAR SUMMARY ---
..... Medication Administration Record [facility] [address] [place] [id number] Patient: WANG MONACO Visit ID: [id number] 62y, M Weight: 65.7 kg Height/Length: 72 in BMI: 19.7 ALLERGIES: No Known Drug Allergy
--- NOTE | 2017-05-23 23:40 | ED MED RECONCILIATION SUMMARY ---
Patient: WANG MONACO Medication Reconciliation Report [facility] VisitID: [id number] [address] [place] [address] 62y, M Registration Date/Time: 05/23/2017 Weight: 65.7 kg Height/Length: 72 in. BMI: 19.7 ALLERGIES: No Known Drug Allergy The patient's Home Medications are listed below: CHANGE THE FOLLOWING MEDICATIONS TO: Warfarin Sodium Oral : 3 mg every other day CONTINUE TAKING THE FOLLOWING MEDICATIONS: Aspirin Oral (81 mg) 1 tablet, daily Atorvastatin Calcium Oral 10 mg, at bedtime Digoxin Oral 0.125 mg, daily Lisinopril Oral 5 mg, daily Metoprolol Succinate ER Oral Spironolactone Oral 25 mg, daily The source(s) of the original Home Medication information: patient The following Medications were given to the patient in the Emergency Department: None. The following Medications were prescribed to the patient: Slow Mag (available over the counter): take 1 orally every 12 hours for 5 days. Dispense ten (10). No refills. -- Vladimir Reynaga MD
== END 2017-05-23 18:11 | disposition home or self-care (01) ==
LOC: ED SRH 15:04
DX: E87.1 Hypo-osmolality and hyponatremia (principal); I12.9 Hypertensive chronic kidney disease with stage 1 through stage 4 chronic kidney disease, or unspecified chronic kidney disease; N18.9 Chronic kidney disease, unspecified; E83.42 Hypomagnesemia; J44.9 Chronic obstructive pulmonary disease, unspecified; I25.2 Old myocardial infarction; Z95.810 Presence of automatic (implantable) cardiac defibrillator; Z79.01 Long term (current) use of anticoagulants; Z79.899 Other long term (current) drug therapy; Z72.0 Tobacco use
CPT/HCPCS: 90100; 92235; 92530; 92720; 93020; 93140; 94001; 94060; 95059